=== PATIENT | female | born 1940 | race Caucasian/White ===

== ENCOUNTER 2016-09-28 17:53 | Emergency (ER) | payer MEDICARE, BC ==
[2016-09-28] MEDS ORDERED: guaiFENesin 600 MG TABLET PO STA (18:07)
== END 2016-09-28 18:26 | disposition home or self-care (01) ==
DX: H73.891 Other specified disorders of tympanic membrane, right ear (principal); Q17.9 Congenital malformation of ear, unspecified; H91.90 Unspecified hearing loss, unspecified ear; I25.10 Atherosclerotic heart disease of native coronary artery without angina pectoris; I10 Essential (primary) hypertension; E78.00 Pure hypercholesterolemia, unspecified; R01.1 Cardiac murmur, unspecified; F41.9 Anxiety disorder, unspecified; F43.10 Post-traumatic stress disorder, unspecified; Z79.899 Other long term (current) drug therapy; Z72.89 Other problems related to lifestyle
CPT/HCPCS: 99282; 99283; A9270

== ENCOUNTER 2016-10-07 15:04 | Outpatient (CLI) | payer MEDICARE, BC | END 2016-10-07 15:05 | disposition home or self-care (01) | DX: S32.591A Other specified fracture of right pubis, initial encounter for closed fracture (principal); S70.01XA Contusion of right hip, initial encounter; M25.551 Pain in right hip ==

== ENCOUNTER 2016-10-21 | Emergency (ER) | payer MEDICARE, BC ==
--- NOTE | 2016-10-21 20:10 | ED Physician Documentation ---
PD HPI ALTERED MENTAL STATUS - Stated complaint Stated Complaint: CONFUSION/DIZZY - Chief complaint Chief Complaint: Neuro - History obtained from History obtained from: Patient, Family () - History of Present Illness Timing - onset: Other (76-year-old woman with recent pelvic fracture. Was on Tylenol No. 3 until yesterday but was insufficient. Fill both hydrocodone and tramadol today and took 2 hydrocodone and one tramadol at 330 p.m. and shortly thereafter felt dizzy and confused which still is present to some extent. No alcohol use today.) Review of Systems Constitutional: denies: Fever, Chills Cardiac: denies: Chest pain / pressure, Palpitations Respiratory: denies: Dyspnea, Cough GI: denies: Abdominal Pain, Nausea PD PAST MEDICAL HISTORY - Past Medical History Cardiovascular: Hypertension, High cholesterol, Coronary artery disease, Murmur Respiratory: None Neuro: None Endocrine/Autoimmune: None GI: None PERSONAL INSURANCE ADVISOR: None : None HEENT: None Psych: Anxiety, Post traumatic stress disorder Musculoskeletal: None Derm: None - Past Surgical History Past Surgical History: Yes General: Appendectomy /PERSONAL INSURANCE ADVISOR: Hysterectomy - Present Medications Home Medications: Ambulatory Orders Medication Instructions Recorded Confirmed Levothyroxine [Synthroid] 75 mcg DAILY 02/20/13 09/28/16 Nortriptyline [Pamelor] 10 mg PO DAILY 02/20/13 09/28/16 Trazodone HCl 50 mg PO QPM 02/20/13 09/28/16 Amlodipine Besylate 2.5 mg DAILY 12/28/13 09/28/16 Metoprolol Succinate [Toprol Xl] 50 mg BID 12/28/13 09/28/16 Aspirin [Aspir-Low] 81 mg DAILY 09/28/16 09/28/16 Chlorthalidone 12.5 mg DAILY 09/28/16 09/28/16 Clonazepam 2 tab DAILY 09/28/16 09/28/16 Ibandronate Sodium 150 mg DAILY 09/28/16 09/28/16 Loperamide [Imodium] 1 tab DAILY 09/28/16 09/28/16 Multivitamin [Multivitamins] 1 tab DAILY 09/28/16 09/28/16 Omeprazole [PriLOSEC] 20 mg DAILY 09/28/16 09/28/16 Potassium Chloride 10 meq TID 09/28/16 09/28/16 Pravastatin [Pravachol] 20 mg DAILY 09/28/16 09/28/16 - Allergies Allergies/Adverse Reactions: Allergies Allergy/AdvReac Type Severity Reaction Status Date / Time No Known Drug Allergies Allergy Verified 02/20/13 16:09 - Social History Does the pt smoke?: No Smoking Status: Never smoker Does the pt drink ETOH?: Yes Does the pt have substance abuse?: No - Immunizations Immunizations are current?: No Immunizations: TDAP >10years/unknown - POLST Patient has POLST: No PD ED PE NORMAL - Vitals Vital signs reviewed: Yes - General General: Alert and oriented X 3, No acute distress - HEENT HEENT: EOMI, Other (small pupils) - Neck Neck: Supple, no meningeal sign, No bony TTP - Cardiac Cardiac: RRR, No murmur - Respiratory Respiratory: No respiratory distress, Clear bilaterally - Abdomen Abdomen: Non tender - Neuro Neuro: Alert and oriented X 3, hydrant setter 2-12 intact, No motor deficit, No sensory deficit, Normal speech, Other (NIHSS zero) - Psych Psych: Normal mood, Normal affect Results - Vitals Vitals: Vital Signs - 24 hr 10/21/16 10/21/16 19:05 20:01 Temperature 36.2 C L Heart Rate 66 63 Respiratory 14 12 Rate Blood Pressure 185/76 H 167/100 H O2 Saturation 92 Oxygen O2 Source Room air - EKG (time done) 1921 Rate: Rate (enter#) (62) Rhythm: NSR [place]: Normal Intervals: Normal MI Ischemia: Q waves (anterior). No: ST elevation c/w ischemia Computer interpretation: Agree with computer PD MEDICAL DECISION MAKING - ED course ED course: She presents with a complaint of confusion and dizziness after taking 2 hydrocodone and one tramadol about 5 hours ago. There is no evidence of significant drug overdose and conservative care was advised. It was advised that she not take these medications together or in a dosage higher than as prescribed. Departure - Departure Disposition: 01 Home, Self Care Clinical Impression: Medication side effect Condition: Good Record reviewed to determine appropriate education?: Yes Comments: Do not take the hydrocodone and tramadol together and do not take them more than are prescribed. Your blood pressure was elevated today on check in to the emergency department. This does not mean that you have hypertension, it is a common phenomenon to check into the emergency department and have elevated blood pressure. I recommend that you see your primary care physician within the week to have it rechecked when you're feeling better.
== END 2016-10-21 20:21 | disposition home or self-care (01) ==
CPT/HCPCS: 93005; 93010; 99283

== ENCOUNTER 2016-11-17 11:35 | Outpatient (CLI) | payer MEDICARE, BC | END 2016-11-17 11:36 | disposition home or self-care (01) | DX: S32.810D Multiple fractures of pelvis with stable disruption of pelvic ring, subsequent encounter for fracture with routine healing (principal) ==

== ENCOUNTER 2017-05-26 10:15 | Emergency (ER) | payer MEDICARE, BC ==
--- NOTE | 2017-05-26 10:55 | XRAY Preliminary Report ---
Exam: XR Chest 2 View PA/LAT IMPRESSION: 1. Pattern of probable right bronchiectasis again demonstrated. However, there is now focal right mid dle lobe consolidation and adjacent nodularity which is suspicious for pneumonia. Follow-up is recomm ended to confirm clearance. If findings do not resolve, or if further characterization were indicated at this time, CT imaging with contrasted would be recommended. 2. Stable mild pulmonary hyperinflation. [facility] SITE ID: [id number]
--- NOTE | 2017-05-26 10:58 | XRAY Report ---
EXAM: CHEST RADIOGRAPHY EXAM DATE: 05/26/2017 10:44 AM. CLINICAL HISTORY: Pain. COMPARISON: None. TECHNIQUE: 2 views. FINDINGS: Lungs/Pleura: Pattern compatible with bronchiectasis within the right lower lung again demonstrated. However, there is now associated ill-defined focal pulmonary consolidation within the anterior right middle lobe and some adjacent nodularity. No pleural effusion. No pneumothorax. Mild hyperinflation r edemonstrated. Dense/calcific nodules projecting over both lower lung cantor again demonstrated, like ly osteochondral calcifications. Mediastinum: Heart and mediastinal contours are unremarkable. Other: Changes of proximal right humeral surgical internal fixation are stable. Old, healed right rib fractures redemonstrated. IMPRESSION: 1. Pattern of probable right bronchiectasis again demonstrated. However, there is now focal right mid dle lobe consolidation and adjacent nodularity which is suspicious for pneumonia. Follow-up is recomm ended to confirm clearance. If findings do not resolve, or if further characterization were indicated at this time, CT imaging with contrasted would be recommended. 2. Stable mild pulmonary hyperinflation. [facility] Referring Provider Line: [phone] SITE ID: [id number]
--- NOTE | 2017-05-26 11:43 | ED Physician Documentation ---
PD HPI URI - Stated complaint Stated Complaint: UPPER RT SIDE PX - Chief complaint Chief Complaint: Abd Pain - History obtained from History obtained from: Patient - History of Present Illness Timing - onset: How many days ago (3) Timing duration: Days (3) Timing details: Gradual onset, Still present Associated symptoms: Nasal congestion, Rhinorrhea, Dry cough, Chest pain, Dyspnea Contributing factors: Sick contact (neighbor got home from a cruize and of pneumonia) Improves by: Rest Worsened by: Activity, Breathing Similar symptoms before: Diagnosis (pneumoina with aspiragellosis) Recently seen: Not recently seen - Additional information Additional information: 77-year-old female is developed a cough about 3 days ago and she does have a neighbor who of pneumonia last week. She has pain in her right side of her chest but does not have shortness of breath or fever. She has had aspergillosis previously Review of Systems Constitutional: reports: Chills. denies: Fever Eyes: denies: Decreased vision Ears: denies: Ear pain Nose: reports: Rhinorrhea / runny nose, Congestion Throat: denies: Sore throat Cardiac: reports: Chest pain / pressure. denies: Palpitations, Pedal edema Respiratory: reports: Dyspnea, Cough GI: denies: Abdominal Pain, Nausea, Vomiting, Constipation, Diarrhea : denies: Dysuria, Frequency Skin: denies: Rash Musculoskeletal: denies: Neck pain, Back pain, Extremity pain Neurologic: denies: Generalized weakness, Focal weakness, Numbness PD PAST MEDICAL HISTORY - Past Medical History Cardiovascular: Hypertension, High cholesterol, Coronary artery disease, Murmur Respiratory: None Neuro: None Endocrine/Autoimmune: None GI: None SILVER CHASER: None : None HEENT: None Psych: Anxiety, Post traumatic stress disorder Musculoskeletal: None Derm: None - Past Surgical History Past Surgical History: Yes General: Appendectomy /SILVER CHASER: Hysterectomy - Present Medications Home Medications: Ambulatory Orders Medication Instructions Recorded Confirmed Levothyroxine [Synthroid] 75 mcg DAILY 02/20/13 05/26/17 Trazodone HCl 50 mg PO QPM 02/20/13 05/26/17 Metoprolol Succinate [Toprol Xl] 50 mg BID 12/28/13 05/26/17 Aspirin [Aspir-Low] 81 mg DAILY 09/28/16 05/26/17 Chlorthalidone 12.5 mg DAILY 09/28/16 05/26/17 Clonazepam 2 tab DAILY 09/28/16 05/26/17 Ibandronate Sodium 150 mg DAILY 09/28/16 05/26/17 Loperamide [Imodium] 1 tab DAILY 09/28/16 05/26/17 Multivitamin [Multivitamins] 1 tab DAILY 09/28/16 05/26/17 Omeprazole [PriLOSEC] 20 mg DAILY 09/28/16 05/26/17 Potassium Chloride 10 meq TID 09/28/16 05/26/17 Pravastatin [Pravachol] 20 mg DAILY 09/28/16 05/26/17 Levofloxacin [Levaquin] 500 mg PO DAILY #10 tablet 05/26/17 Lisinopril 20 mg PO DAILY 05/26/17 05/26/17 - Allergies Allergies/Adverse Reactions: Allergies Allergy/AdvReac Type Severity Reaction Status Date / Time No Known Drug Allergies Allergy Verified 02/20/13 16:09 - Social History Does the pt smoke?: No Smoking Status: Never smoker Does the pt drink ETOH?: Yes Does the pt have substance abuse?: No - Immunizations Immunizations are current?: No Immunizations: TDAP >10years/unknown - POLST Patient has POLST: No PD ED PE NORMAL - Vitals Vital signs reviewed: Yes (Normal) - General General: Alert and oriented X 3, No acute distress, Well developed/nourished - HEENT HEENT: Atraumatic, PERRL, EOMI, Ears normal, Moist mucous membranes - Neck Neck: Supple, no meningeal sign - Cardiac Cardiac: RRR, No murmur - Respiratory Respiratory: No respiratory distress, Other (Diminished breath sounds bilaterally) - Abdomen Abdomen: Soft, Non tender - Back Back: No CVA TTP, No spinal TTP - Derm Derm: Normal color, Warm and dry, No rash - Extremities Extremities: No deformity, No edema - Neuro Neuro: No motor deficit, No sensory deficit, Normal speech - Psych Psych: Normal mood, Normal affect Results - Vitals Vitals: Vital Signs - 24 hr 05/26/17 05/26/17 10:18 12:32 Temperature 37.0 C 37.4 C Heart Rate 68 63 Respiratory 18 20 Rate Blood Pressure 110/68 132/67 H O2 Saturation 99 100 Oxygen O2 Source Room air - Rads (name of study) 2 veiw chest Radiology: Prelim report reviewed (IMPRESSION: 1. Pattern of probable right bronchiectasis is again demonstrated. However, there is now focal right middle lobe consolidation and adjacent nodularity which is suspicious for pneumonia. Follow-up is recommended to confirm clearance. If findings do not resolve, or further characterization were indicated at this time, CT imaging with contrast would be recommended. 2. Stable mild pulmonary hyperinflation.), EMP read indepedently, See rad report PD MEDICAL DECISION MAKING - ED course Complexity details: reviewed results, re-evaluated patient, considered differential, d/w patient, d/w family ED course: 69-year-old female with a cough and congestion has developed pain in her right chest beginning last night and on her chest x-ray today she does appear to have an infiltrate on the right side. She does have a history of prior aspergillosis and she has scarring on her x-ray.She is given an injection of Rocephin for pneumonia. She does not have symptoms of reactive airway disease but she does have reduced air movement. Departure - Departure Disposition: 01 Home, Self Care Clinical Impression: Pneumonia Qualifiers: Pneumonia type: due to unspecified organism Laterality: right Lung location: middle lobe of lung Qualified Code(s): J18.1 - Lobar pneumonia, unspecified organism Condition: Stable Instructions: ED Pneumonia Adult Follow-Up: Leonid Ashraf MD [Primary Care Provider] - Prescriptions: Levofloxacin [Levaquin] 500 mg PO DAILY #10 tablet Discharge Date/Time: 05/26/17 12:40
[2017-05-26] MEDS ORDERED: cefTRIAXone 1 GM VIAL IM STA (11:54)
[2017-05-26] MEDS ORDERED: cefTRIAXone 1 GM VIAL ONE (12:00)
[2017-05-26] MEDS ORDERED: LIDOCAINE 1% 2 ML VIAL ONE (12:01)
[2017-05-26 12:33] VITALS: BP 132/67
== END 2017-05-26 12:40 | disposition home or self-care (01) ==
LOC: ED 10:15
DX: J18.9 Pneumonia, unspecified organism (principal); I10 Essential (primary) hypertension; I25.10 Atherosclerotic heart disease of native coronary artery without angina pectoris; E78.00 Pure hypercholesterolemia, unspecified; Z79.82 Long term (current) use of aspirin
CPT/HCPCS: 71020; 96372; 99281; 99283; 99284

== ENCOUNTER 2017-05-26 20:32 | Emergency (ER) | payer MEDICARE, BC ==
[2017-05-26 20:46] VITALS: BP 139/67
== END 2017-05-26 22:00 | disposition left against medical advice (07) ==
LOC: ED 20:32
DX: Z53.21 Procedure and treatment not carried out due to patient leaving prior to being seen by health care provider (principal)
CPT/HCPCS: 99281

== ENCOUNTER 2018-04-08 21:06 | Emergency (ER) | payer MEDICARE, BC ==
[2018-04-08] MEDS ORDERED: oxyCODONE 5 MG TABLET PO STA (21:27)
[2018-04-08] MEDS ORDERED: CYCLOBENZAPRINE 10 MG TABLET PO STA (21:27)
--- NOTE | 2018-04-08 21:31 | ED Physician Documentation ---
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 C/O low back pain. Patient landed on her buttocks. Denies head injury, denies LOC, denies numbness, weakness. Took two tablets hydrocodone with some relief Review of Systems GI: reports: Reviewed and negative : denies: Incontinent Musculoskeletal: reports: Back pain, Pain with weight bearing. denies: Neck pain, Extremity pain, Joint pain, Extremity swelling, Joint swelling Neurologic: denies: Generalized weakness, Focal weakness, Numbness, Confused, Altered mental status, Headache, Head injury, LOC PD PAST MEDICAL HISTORY - Past Medical History Cardiovascular: Hypertension, High cholesterol, Coronary artery disease, Murmur Respiratory: None Endocrine/Autoimmune: None GI: None SECURITY CHIEF MUSEUM: None : None HEENT: None Psych: Anxiety, Post traumatic stress disorder Musculoskeletal: None Derm: None - Past Surgical History Past Surgical History: Yes General: Appendectomy /SECURITY CHIEF MUSEUM: Hysterectomy - Present Medications Home Medications: Ambulatory Orders Medication Instructions Recorded Confirmed Levothyroxine [Synthroid] 75 mcg DAILY 02/20/13 05/26/17 Trazodone HCl 50 mg PO QPM 02/20/13 05/26/17 Metoprolol Succinate [Toprol Xl] 50 mg BID 12/28/13 05/26/17 Aspirin [Aspir-Low] 81 mg DAILY 09/28/16 05/26/17 Chlorthalidone 12.5 mg DAILY 09/28/16 05/26/17 Ibandronate Sodium 150 mg DAILY 09/28/16 05/26/17 Loperamide [Imodium] 1 tab DAILY 09/28/16 05/26/17 Multivitamin [Multivitamins] 1 tab DAILY 09/28/16 05/26/17 Omeprazole [PriLOSEC] 20 mg DAILY 09/28/16 05/26/17 Potassium Chloride 10 meq TID 09/28/16 05/26/17 Pravastatin [Pravachol] 20 mg DAILY 09/28/16 05/26/17 clonazePAM [Clonazepam] 2 tab DAILY 09/28/16 05/26/17 Levofloxacin [Levaquin] 500 mg PO DAILY #10 tablet 05/26/17 Lisinopril 20 mg PO DAILY 05/26/17 05/26/17 Cyclobenzaprine [Flexeril] 10 mg PO TID PRN #20 tablet 04/08/18 oxyCODONE [Roxicodone] 5 - 10 mg PO Q6H PRN #14 tablet 04/08/18 - Allergies Allergies/Adverse Reactions: Allergies Allergy/AdvReac Type Severity Reaction Status Date / Time tide detergent Allergy Hives Uncoded 05/26/17 20:46 - Social History Does the pt smoke?: No Smoking Status: Never smoker Does the pt drink ETOH?: Yes Does the pt have substance abuse?: No - Immunizations Immunizations are current?: No Immunizations: TDAP >10years/unknown - POLST Patient has POLST: No PD ED PE NORMAL - Vitals Vital signs reviewed: Yes - General General: Alert and oriented X 3, No acute distress (NAD at rest, appears to have painful discomfort with movement involving mid/lower back), Well developed/ nourished - Neck Neck: No bony TTP - Cardiac Cardiac: RRR - Abdomen Abdomen: Soft, Non tender - Extremities Extremities: No deformity, No tenderness to palpate, Normal ROM s pain, No edema - Neuro Neuro: Alert and oriented X 3, fish cleaner machine tender 2-12 intact, No motor deficit, No sensory deficit, Normal speech Eye Opening: Spontaneous Motor: Obeys Commands Verbal: Oriented GCS Score: 15 PD ED PE EXPANDED - Cardiac Cardiac: Regular Rate, Regular Rhythm (occasional extra beats), Murmur Present ( 2/6 RUDDY greatest at right 2nd ICS) - Back Back: Vertebral tenderness (mild tenderness midline lower thoracic/upper lumbar region) Results - Vitals Vitals: Vital Signs - 24 hr 04/08/18 04/09/18 21:13 00:08 Temperature 36.6 C Heart Rate 60 60 Respiratory 20 20 Rate Blood Pressure 202/72 H 160/70 H O2 Saturation 100 100 Oxygen O2 Source Room air - Rads (name of study) lumbar xrays Radiology: Prelim report reviewed, See rad report PD MEDICAL DECISION MAKING - ED course Complexity details: reviewed results, re-evaluated patient, considered differential, d/w patient, d/w family - Sepsis Event Vital Signs: Vital Signs - 24 hr 04/08/18 04/09/18 21:13 00:08 Temperature 36.6 C Heart Rate 60 60 Respiratory 20 20 Rate Blood Pressure 202/72 H 160/70 H O2 Saturation 100 100 Oxygen O2 Source Room air Departure - Departure Disposition: 01 Home, Self Care Clinical Impression: Fall, Back pain due to injury Condition: Good Instructions: ED Low Back Pain Injury, ED Mechanical Fall Follow-Up: Leonid Ashraf MD [Primary Care Provider] - Within 1 week Prescriptions: Cyclobenzaprine [Flexeril] 10 mg PO TID PRN #20 tablet PRN Reason: Spasms oxyCODONE [Roxicodone] 5 - 10 mg PO Q6H PRN #14 tablet PRN Reason: Pain Discharge Date/Time: 04/08/18 23:45
--- NOTE | 2018-04-08 21:58 | XRAY Report ---
Procedure Date: 04/08/2018 Accession Number: [id number] / [id number] Procedure: XR - Lumbar Spine 2 View CPT Code: FULL RESULT: EXAM: LUMBOSACRAL SPINE RADIOGRAPHY EXAM DATE: 04/08/2018 09:46 PM. CLINICAL HISTORY: Fall, low/mid back pain. COMPARISONS: XR LUMBAR SPINE 2 OR 3 VIEWS 05/14/2009. TECHNIQUE: 3 views. FINDINGS: Alignment: Normal. No spondylolisthesis or scoliosis. Bones: Five [id number] lumbar vertebral bodies are present. There is slight compression of the L1 superior endplate which is new compared to the previous exam. No other evidence of fracture. Disks: Moderate L5-S1 degenerative disk space narrowing with associated endplate sclerosis and marginal spurring. There is also mild narrowing of the L4-L5 interspace. Facets: L4-L5 and L5-S1 facet joint arthropathy. Sacroiliac Joints: Unremarkable. Soft Tissues: Normal. The visualized bowel gas pattern is normal. IMPRESSION: 1. Mild compression fracture deformity of the L1 superior endplate, age indeterminate. 2. L4-L5 and L5-S1 disk and facet joint related degenerative changes. [facility]
[2018-04-08] MEDS ORDERED: oxyCODONE/ACET 5/325 Prepack 4 PO STA (23:01)
[2018-04-08] MEDS ORDERED: CYCLOBENZAPRINE 10 MG Prepack 2 PO PRN (23:01)
[2018-04-09 00:09] VITALS: BP 160/70
== END 2018-04-08 23:45 | disposition home or self-care (01) ==
LOC: ED 21:06
DX: M54.5 Low back pain (principal); M54.6 Pain in thoracic spine; I10 Essential (primary) hypertension; Z79.82 Long term (current) use of aspirin; W18.30XA Fall on same level, unspecified, initial encounter; Y93.89 Activity, other specified; Y92.008 Other place in unspecified non-institutional (private) residence as the place of occurrence of the external cause
CPT/HCPCS: 72100; 99283; A9270

== ENCOUNTER 2018-04-13 16:02 | Outpatient (CLI) | payer MEDICARE, BC ==
[2018-04-13 16:19] LABS: BASOPHILS % (AUTO) 0.6 %; EOSINOPHILS % (AUTO) 0.3 %; HGB - HEMOGLOBIN 12.8 g/dL (12.0-16.0); LYMPHOCYTES # (AUTO) 0.7 10^3/uL (1.5-3.5); LYMPHOCYTES % (AUTO) 9.4 %; MEAN CORPUSCULAR HEMOGLOBIN 32.3 pg (27.0-31.0); MEAN CORPUSCULAR VOLUME 92.3 fL (81.0-99.0); MEAN PLATELET VOLUME 6.3 fL (7.9-10.8); MONOCYTES # (AUTO) 0.6 10^3/uL (0.0-1.0); MONOCYTES % (AUTO) 7.5 %; NEUTROPHILS # (AUTO) 6.5 10^3/uL (1.5-6.6); NEUTROPHILS % (AUTO) 82.2 %; PLT - PLATELET COUNT 303 10^3/uL (130-450); RED BLOOD COUNT 3.97 10^6/uL (4.20-5.40); RED CELL DISTRIBUTION WIDTH 12.2 % (12.0-15.0); WHITE BLOOD COUNT 7.9 x10^3/uL (4.8-10.8)
[2018-04-13 16:36] LABS: ALBUMIN 3.6 g/dL (3.2-5.5); ALBUMIN/GLOBULIN RATIO 1.1 (1.0-2.2); BILIRUBIN,TOTAL 1.5 mg/dL (0.2-1.0); CREATININE 0.7 mg/dL (0.4-1.0)
== END 2018-04-13 16:03 | disposition home or self-care (01) ==
LOC: LAB 16:02
PROVIDERS: ATTEND Specialist
DX: M48.50XA Collapsed vertebra, not elsewhere classified, site unspecified, initial encounter for fracture (principal)
CPT/HCPCS: 36415; 80053; 85025; 85651

== ENCOUNTER 2018-04-20 15:42 | Outpatient (CLI) | payer MEDICARE, BC ==
--- NOTE | 2018-04-20 17:07 | CT Report ---
Reason: LOW BACK PAIN Procedure Date: 04/20/2018 Accession Number: [id number] / [id number] Procedure: CT - Lumbar Spine W/O CPT Code: FULL RESULT: EXAM: CT LUMBAR SPINE WITHOUT CONTRAST EXAM DATE: 04/20/2018 04:20 PM. CLINICAL HISTORY: Back pain and discomfort. COMPARISONS: LUMBAR SPINE 2 VIEW 04/08/2018. TECHNIQUE: Thin-section axial images were acquired of the lumbar spine from T12 to S1 without contrast. Post-processing: Coronal and sagittal reformats. Other: None. In accordance with CT protocol optimization, one or more of the following dose reduction techniques were utilized for this exam: automated exposure control, adjustment of mA and/or KV based on patient size, or use of iterative reconstructive technique. FINDINGS: Alignment: 6 degrees of dextroscoliosis between T11-T12 and L3-L4. Mild kyphotic change at the thoracolumbar junction. Bones: Five [id number] lumbar vertebral bodies are present. Since the comparison study, there has been further progression of L1 compression fracture, now with loss of about 75% of vertebral body in the central aspect. There is also new retropulsion of about 5 mm. Series 7 image 53. Endplate sclerosis at L5-S1. Disk Levels/Facets: T12-L1: Retropulsion at this level. No significant disk disease. Moderate central stenosis. No foraminal narrowing. L1-L2: Normal appearing disk. No central or foraminal stenosis. L2-L3: Normal appearing disk. No central or foraminal stenosis. L3-L4: Broad-based disk bulge is seen. Mild central stenosis. Prominent facets. No central or foraminal stenosis. L4-L5: Disk osteophyte complex at this level. Hypertrophic facets and ligamentum flavum. Left-sided disk bulge is seen. Moderate left foraminal stenosis. No central stenosis. L5-S1: Disk osteophyte complex. Moderate central stenosis. Moderate to severe bilateral foraminal stenosis. Musculature: Moderate fatty atrophy of the multifidus muscle is noted. Other: The visualized retroperitoneum is unremarkable. IMPRESSION: 1. 6 degrees of dextroscoliosis between T11-T12 and L3-L4. Mild kyphotic change at the thoracolumbar junction. 2. Further progression of L1 compression fracture since the comparison exam, now with involvement of about 75% of vertebral body in the central aspect. New retropulsion of about 5 mm. 3. L3-L4 shows a broad-based disk bulge, mild central stenosis. No central or foraminal stenosis. 4. L4-L5 shows disk osteophyte complex. Hypertrophic facets and ligamentum flavum. Left-sided disk bulge. Moderate left foraminal stenosis. No central stenosis. 5. L5-S1 shows disk osteophyte complex. Moderate central stenosis and moderate to severe bilateral foraminal stenosis. [facility]
== END 2018-04-20 15:43 | disposition home or self-care (01) ==
LOC: DI 15:42
PROVIDERS: ATTEND Specialist
DX: M51.36 Other intervertebral disc degeneration, lumbar region (principal); M47.896 Other spondylosis, lumbar region; M48.061 Spinal stenosis, lumbar region without neurogenic claudication; M48.07 Spinal stenosis, lumbosacral region; M48.56XD Collapsed vertebra, not elsewhere classified, lumbar region, subsequent encounter for fracture with routine healing; M41.84 Other forms of scoliosis, thoracic region; M41.86 Other forms of scoliosis, lumbar region
CPT/HCPCS: 72131

== ENCOUNTER 2018-06-24 10:54 | Outpatient (CLI) | payer MEDICARE, BC ==
[2018-06-24 11:15] LABS: BASOPHILS % (AUTO) 0.8 %; EOSINOPHILS # (AUTO) 0.3 10^3/uL (0.0-0.7); EOSINOPHILS % (AUTO) 5.7 %; HGB - HEMOGLOBIN 12.6 g/dL (12.0-16.0); LYMPHOCYTES # (AUTO) 1.8 10^3/uL (1.5-3.5); LYMPHOCYTES % (AUTO) 32.9 %; MEAN CORPUSCULAR HEMOGLOBIN 32.4 pg (27.0-31.0); MEAN CORPUSCULAR HGB CONC 34.3 g/dL (32.0-36.0); MEAN CORPUSCULAR VOLUME 94.5 fL (81.0-99.0); MEAN PLATELET VOLUME 6.5 fL (7.9-10.8); MONOCYTES # (AUTO) 0.5 10^3/uL (0.0-1.0); MONOCYTES % (AUTO) 9.4 %; NEUTROPHILS # (AUTO) 2.8 10^3/uL (1.5-6.6); NEUTROPHILS % (AUTO) 51.2 %; PLT - PLATELET COUNT 318 10^3/uL (130-450); RED BLOOD COUNT 3.89 10^6/uL (4.20-5.40); RED CELL DISTRIBUTION WIDTH 13.1 % (12.0-15.0); WHITE BLOOD COUNT 5.5 x10^3/uL (4.8-10.8)
[2018-06-24 11:36] LABS: ALBUMIN 3.9 g/dL (3.2-5.5); ALBUMIN/GLOBULIN RATIO 1.4 (1.0-2.2); ALKALINE PHOSPHATASE 58 IU/L (42-121); ALT ALANINE AMINOTRANSFERASE 14 IU/L (10-60); AST ASPARTATE AMINOTRANSFERASE 20 IU/L (10-42); BILIRUBIN,TOTAL 0.7 mg/dL (0.2-1.0); BUN - BLOOD UREA NITROGEN 10 mg/dL (6-20); CALCIUM 9.3 mg/dL (8.5-10.3); CARBON DIOXIDE - CO2 31 mmol/L (21-32); CHLORIDE 95 mmol/L (101-111); CHOL/HDL RATIO 2.5 (<4.4); CHOLESTEROL 209 mg/dL; CREATININE 0.5 mg/dL (0.4-1.0); GFR - MDRD 119 (>89); GLUCOSE 87 mg/dL (70-100); HDL CHOLESTEROL 83 mg/dL; LDL CHOLESTEROL,CALCULATED 110 mg/dL; LDL/HDL RATIO 1.3 (<4.4); SODIUM 133 mmol/L (135-145); TOTAL PROTEIN 6.7 g/dL (6.7-8.2); VLDL CHOLESTEROL 16 mg/dL
[2018-06-24 11:55] LABS: THYROID STIMULATING HORMONE 4.01 uIU/mL (0.34-5.60)
[2018-06-24 11:57] LABS: FREE T4 (FREE THYROXINE) 1.24 ng/dL (0.58-1.64)
== END 2018-06-24 10:55 | disposition home or self-care (01) ==
LOC: LAB 10:54
PROVIDERS: ATTEND Internal Medicine
DX: E78.5 Hyperlipidemia, unspecified (principal); E03.8 Other specified hypothyroidism
CPT/HCPCS: 36415; 80053; 80061; 83721; 84439; 84443; 85025

== ENCOUNTER 2019-01-19 14:30 | Outpatient (CLI) | payer MEDICARE, BC ==
[2019-01-19 15:32] LABS: BASOPHILS % (AUTO) 0.4 %; EOSINOPHILS # (AUTO) 0.4 10^3/uL (0.0-0.7); EOSINOPHILS % (AUTO) 4.2 %; HGB - HEMOGLOBIN 12.1 g/dL (12.0-16.0); LYMPHOCYTES # (AUTO) 1.3 10^3/uL (1.5-3.5); LYMPHOCYTES % (AUTO) 14.7 %; MEAN CORPUSCULAR HEMOGLOBIN 30.3 pg (27.0-31.0); MEAN CORPUSCULAR HGB CONC 32.9 g/dL (32.0-36.0); MEAN CORPUSCULAR VOLUME 92.1 fL (81.0-99.0); MEAN PLATELET VOLUME 6.7 fL (7.9-10.8); MONOCYTES # (AUTO) 0.7 10^3/uL (0.0-1.0); MONOCYTES % (AUTO) 8.2 %; NEUTROPHILS # (AUTO) 6.5 10^3/uL (1.5-6.6); NEUTROPHILS % (AUTO) 72.5 %; PLT - PLATELET COUNT 336 10^3/uL (130-450); RED CELL DISTRIBUTION WIDTH 12.5 % (12.0-15.0)
[2019-01-19 15:51] LABS: ALBUMIN 3.8 g/dL (3.2-5.5); ALBUMIN/GLOBULIN RATIO 1.1 (1.0-2.2); BILIRUBIN,TOTAL 0.6 mg/dL (0.2-1.0); CALCIUM 9.4 mg/dL (8.5-10.3); CREATININE 0.6 mg/dL (0.4-1.0); TOTAL PROTEIN 7.2 g/dL (6.7-8.2)
== END 2019-01-19 14:31 | disposition home or self-care (01) ==
LOC: LAB 14:30
DX: J47.9 Bronchiectasis, uncomplicated (principal); B44.9 Aspergillosis, unspecified
CPT/HCPCS: 36415; 80053; 85025

== ENCOUNTER 2019-02-07 11:07 | Outpatient (CLI) | payer MEDICARE, BC ==
[2019-02-07 11:36] LABS: BASOPHILS % (AUTO) 0.8 %; EOSINOPHILS # (AUTO) 0.1 10^3/uL (0.0-0.7); EOSINOPHILS % (AUTO) 2.8 %; HGB - HEMOGLOBIN 12.7 g/dL (12.0-16.0); LYMPHOCYTES % (AUTO) 20.7 %; MEAN CORPUSCULAR HEMOGLOBIN 30.3 pg (27.0-31.0); MEAN CORPUSCULAR HGB CONC 33.2 g/dL (32.0-36.0); MEAN CORPUSCULAR VOLUME 91.1 fL (81.0-99.0); MEAN PLATELET VOLUME 6.4 fL (7.9-10.8); MONOCYTES # (AUTO) 0.5 10^3/uL (0.0-1.0); NEUTROPHILS % (AUTO) 64.7 %; PLT - PLATELET COUNT 383 10^3/uL (130-450); RED BLOOD COUNT 4.18 10^6/uL (4.20-5.40); WHITE BLOOD COUNT 4.6 x10^3/uL (4.8-10.8)
[2019-02-07 11:51] LABS: ALBUMIN 3.7 g/dL (3.2-5.5); BILIRUBIN,TOTAL 0.6 mg/dL (0.2-1.0); CALCIUM 8.8 mg/dL (8.5-10.3); CREATININE 0.5 mg/dL (0.4-1.0); TOTAL PROTEIN 7.3 g/dL (6.7-8.2)
== END 2019-02-07 11:08 | disposition home or self-care (01) ==
LOC: LAB 11:07
PROVIDERS: ATTEND General Practice
DX: J47.9 Bronchiectasis, uncomplicated (principal); B44.9 Aspergillosis, unspecified
CPT/HCPCS: 36415; 80053; 85025

== ENCOUNTER 2019-02-15 15:32 | Outpatient (CLI) | payer MEDICARE, BC ==
[2019-02-15 15:57] LABS: BASOPHILS % (AUTO) 0.6 %; EOSINOPHILS # (AUTO) 0.3 10^3/uL (0.0-0.7); EOSINOPHILS % (AUTO) 4.8 %; HGB - HEMOGLOBIN 12.4 g/dL (12.0-16.0); LYMPHOCYTES # (AUTO) 1.4 10^3/uL (1.5-3.5); LYMPHOCYTES % (AUTO) 22.5 %; MEAN CORPUSCULAR HEMOGLOBIN 29.9 pg (27.0-31.0); MEAN CORPUSCULAR HGB CONC 32.2 g/dL (32.0-36.0); MEAN CORPUSCULAR VOLUME 92.8 fL (81.0-99.0); MEAN PLATELET VOLUME 8.5 fL (7.9-10.8); MONOCYTES # (AUTO) 0.5 10^3/uL (0.0-1.0); MONOCYTES % (AUTO) 7.4 %; NEUTROPHILS # (AUTO) 4.1 10^3/uL (1.5-6.6); NEUTROPHILS % (AUTO) 64.4 %; PLT - PLATELET COUNT 275 10^3/uL (130-450); RED BLOOD COUNT 4.15 10^6/uL (4.20-5.40); RED CELL DISTRIBUTION WIDTH 11.6 % (12.0-15.0); WHITE BLOOD COUNT 6.3 x10^3/uL (4.8-10.8)
[2019-02-15 16:10] LABS: ALBUMIN 3.7 g/dL (3.2-5.5); BILIRUBIN,TOTAL 0.5 mg/dL (0.2-1.0); CALCIUM 9.4 mg/dL (8.5-10.3); CREATININE 0.6 mg/dL (0.4-1.0); TOTAL PROTEIN 7.3 g/dL (6.7-8.2)
== END 2019-02-15 15:33 | disposition home or self-care (01) ==
LOC: LAB 15:32
PROVIDERS: ATTEND General Practice
DX: J47.9 Bronchiectasis, uncomplicated (principal); B44.9 Aspergillosis, unspecified
CPT/HCPCS: 36415; 80053; 85025

== ENCOUNTER 2019-06-27 15:01 | Outpatient (CLI) | payer MEDICARE, BC ==
[2019-06-27 15:55] LABS: ALBUMIN 3.9 g/dL (3.2-5.5); ALBUMIN/GLOBULIN RATIO 1.1 (1.0-2.2); BILIRUBIN,TOTAL 0.3 mg/dL (0.2-1.0); CALCIUM 9.1 mg/dL (8.5-10.3); CREATININE 0.7 mg/dL (0.4-1.0); TOTAL PROTEIN 7.3 g/dL (6.7-8.2)
[2019-06-27 16:11] LABS: THYROID STIMULATING HORMONE 0.62 uIU/mL (0.34-5.60)
[2019-06-27 16:13] LABS: FREE T4 (FREE THYROXINE) 0.96 ng/dL (0.58-1.64)
== END 2019-06-27 15:02 | disposition home or self-care (01) ==
LOC: LAB 15:01
PROVIDERS: ATTEND Internal Medicine
DX: I10 Essential (primary) hypertension (principal); E03.8 Other specified hypothyroidism
CPT/HCPCS: 36415; 80053; 84439; 84443

== ENCOUNTER 2019-07-25 11:34 | Outpatient (CLI) | payer MEDICARE, BC | END 2019-07-25 11:35 | disposition home or self-care (01) | LOC: DI 11:34 | PROVIDERS: ATTEND Internal Medicine | DX: R01.1 Cardiac murmur, unspecified (principal); I35.0 Nonrheumatic aortic (valve) stenosis | CPT/HCPCS: 93306 ==

== ENCOUNTER 2019-12-05 15:41 | Outpatient (CLI) | payer MEDICARE, BC | END 2019-12-05 15:42 | disposition critical access hospital (66) | LOC: EMS 15:41 | PROVIDERS: ATTEND Surgery | DX: M25.552 Pain in left hip (principal); W18.09XA Striking against other object with subsequent fall, initial encounter; Y92.009 Unspecified place in unspecified non-institutional (private) residence as the place of occurrence of the external cause ==

== ENCOUNTER 2019-12-05 16:00 | Emergency (ER) | payer MEDICARE, BC ==
[2019-12-05] MEDS ORDERED: MORPHINE 2 MG/ML CARPUJECT IVP STA (16:04)
--- NOTE | 2019-12-05 16:12 | ED Physician Documentation ---
PD HPI LOWER EXT INJURY - Stated complaint Stated Complaint: GLF/HIP PAIN - History obtained from History obtained from: Patient (She had a ground-level fall directly onto her left hip with exquisite pain today. No other injuries. She is otherwise very healthy. Denies hitting her head.) Review of Systems Ten Systems: 10 systems reviewed and negative Constitutional: denies: Fever, Chills Cardiac: reports: Reviewed and negative Respiratory: reports: Reviewed and negative PD PAST MEDICAL HISTORY - Past Medical History Cardiovascular: Hypertension, High cholesterol, Coronary artery disease, Murmur Respiratory: None Endocrine/Autoimmune: None GI: None WRESTLING COACH: None : None HEENT: None Psych: Anxiety, Post traumatic stress disorder Musculoskeletal: None Derm: None - Past Surgical History Past Surgical History: Yes General: Appendectomy /WRESTLING COACH: Hysterectomy - Present Medications Home Medications: Ambulatory Orders Medication Instructions Recorded Confirmed Levothyroxine [Synthroid] 75 mcg DAILY 02/20/13 05/26/17 Trazodone HCl 50 mg PO QPM 02/20/13 05/26/17 Metoprolol Succinate [Toprol Xl] 50 mg BID 12/28/13 05/26/17 Aspirin [Aspir-Low] 81 mg DAILY 09/28/16 05/26/17 Chlorthalidone 12.5 mg DAILY 09/28/16 05/26/17 Ibandronate Sodium 150 mg DAILY 09/28/16 05/26/17 Loperamide [Imodium] 1 tab DAILY 09/28/16 05/26/17 Multivitamin [Multivitamins] 1 tab DAILY 09/28/16 05/26/17 Omeprazole [PriLOSEC] 20 mg DAILY 09/28/16 05/26/17 Potassium Chloride 10 meq TID 09/28/16 05/26/17 Pravastatin [Pravachol] 20 mg DAILY 09/28/16 05/26/17 clonazePAM [Clonazepam] 2 tab DAILY 09/28/16 05/26/17 Levofloxacin [Levaquin] 500 mg PO DAILY #10 tablet 05/26/17 lisinopriL [Lisinopril] 20 mg PO DAILY 05/26/17 05/26/17 Cyclobenzaprine [Flexeril] 10 mg PO TID PRN #20 tablet 04/08/18 oxyCODONE [Roxicodone] 5 - 10 mg PO Q6H PRN #14 tablet 04/08/18 - Allergies Allergies/Adverse Reactions: Allergies Allergy/AdvReac Type Severity Reaction Status Date / Time tide detergent Allergy Hives Uncoded 12/05/19 16:16 - Social History Does the pt smoke?: No Smoking Status: Never smoker Does the pt drink ETOH?: Yes Does the pt have substance abuse?: No - Immunizations Immunizations are current?: No Immunizations: TDAP >10years/unknown - POLST Patient has POLST: No PD ED PE NORMAL - Vitals Vital signs reviewed: Yes - General General: Alert and oriented X 3, Other (She is holding the left hip flexed and has exquisite pain with any motion.) - HEENT HEENT: Atraumatic, PERRL, EOMI - Neck Neck: Supple, no meningeal sign, No bony TTP - Cardiac Cardiac: RRR, No murmur - Respiratory Respiratory: No respiratory distress, Clear bilaterally - Abdomen Abdomen: Soft, Non tender - Back Back: No CVA TTP, No spinal TTP - Derm Derm: Normal color, Warm and dry - Extremities Extremities: Other (Exquisitely tender around the left hip and severe pain with internal or external rotation. She is keeping it flexed.) - Neuro Neuro: Alert and oriented X 3, Normal speech Results - Vitals Vitals: Vital Signs - 24 hr 12/05/19 12/05/19 12/05/19 16:17 16:32 17:33 Temperature 37.1 C Heart Rate 82 83 Respiratory 18 18 18 Rate Blood Pressure 197/100 H 188/87 H O2 Saturation 98 98 Oxygen O2 Source Room air - Labs Labs: Laboratory Tests 12/05/19 12/05/19 12/05/19 16:13 16:13 16:13 WBC 8.5 RBC 4.17 L Hgb 13.0 Hct 37.8 MCV 90.6 MCH 31.2 H MCHC 34.4 RDW 10.9 L Plt Count 324 MPV 8.1 Neut # (Auto) 6.4 Lymph # (Auto) 1.3 L Loving # (Auto) 0.7 Eos # (Auto) 0.1 Baso # (Auto) 0.0 Absolute Nucleated RBC 0.00 Nucleated RBC % 0.0 PT 12.9 H INR 1.1 Sodium 123 L Potassium 2.7 L Chloride 82 L Carbon Dioxide 27 Anion Gap 14.0 H BUN 12 Creatinine 0.4 Estimated GFR (MDRD) 154 Glucose 114 H Calcium 9.0 - Rads (name of study) Xr L Hip Radiology: EMP read contemporaneously (Moderately angulated and foreshortened comminuted and displaced intertrochanteric left femoral fracture) PD MEDICAL DECISION MAKING - ED course ED course: 79-year-old presents with isolated left hip injury, looks like femoral neck fracture on x-ray. Unfortunately no orthopedic coverage available here today and will try [facility] for transfer. She was graciously accepted by Dr. Rl Tolentino to [facility] at 4:48 PM and cobras were completed. She is stable for transport for orthopedic care. She did receive maintenance fluids and some IV potassium, that looks like she is on chlorthalidone which may be causative of the hyponatremia and hypokalemia. Departure - Departure Disposition: 02 Transfer Acute Care Hosp Clinical Impression: Hyponatremia, Hypokalemia Closed left hip fracture Qualifiers: Encounter type: initial encounter Qualified Code(s): S72.002A - Fracture of unspecified part of neck of left femur, initial encounter for closed fracture Condition: Serious Discharge Date/Time: 12/05/19 18:43
[2019-12-05 16:23] LABS: BASOPHILS % (AUTO) 0.5 %; EOSINOPHILS # (AUTO) 0.1 10^3/uL (0.0-0.7); EOSINOPHILS % (AUTO) 1.6 %; LYMPHOCYTES # (AUTO) 1.3 10^3/uL (1.5-3.5); LYMPHOCYTES % (AUTO) 15.1 %; MEAN CORPUSCULAR HEMOGLOBIN 31.2 pg (27.0-31.0); MEAN CORPUSCULAR HGB CONC 34.4 g/dL (32.0-36.0); MEAN CORPUSCULAR VOLUME 90.6 fL (81.0-99.0); MEAN PLATELET VOLUME 8.1 fL (7.9-10.8); MONOCYTES # (AUTO) 0.7 10^3/uL (0.0-1.0); MONOCYTES % (AUTO) 7.7 %; NEUTROPHILS # (AUTO) 6.4 10^3/uL (1.5-6.6); NEUTROPHILS % (AUTO) 74.7 %; PLT - PLATELET COUNT 324 10^3/uL (130-450); RED BLOOD COUNT 4.17 10^6/uL (4.20-5.40); RED CELL DISTRIBUTION WIDTH 10.9 % (12.0-15.0); WHITE BLOOD COUNT 8.5 x10^3/uL (4.8-10.8)
[2019-12-05 16:31] LABS: CREATININE 0.4 mg/dL (0.4-1.0)
[2019-12-05 16:32] LABS: INR 1.1 (0.8-1.2); PT - PROTHROMBIN TIME 12.9 secs (9.9-12.6)
[2019-12-05] MEDS ORDERED: HYDROmorphone 1 MG/ML CARPUJECT IVP STA ×2 (16:33→17:13)
[2019-12-05] MEDS ORDERED: SODIUM CHLORIDE 0.9% 1,000 ML IV ONE (16:47)
[2019-12-05] MEDS ORDERED: POTASSIUM CHLOR 10 MEQ/100 ML 10 MEQ/100 ML BAG IV ONE (16:47)
--- NOTE | 2019-12-05 17:23 | XRAY Report ---
Reason: hip inj Procedure Date: 12/05/2019 Accession Number: [id number] / [id number] Procedure: XR - Hip w/Pelvis 2-3V LT CPT Code: Final Report FULL RESULT: EXAM: PELVIS AND LEFT HIP RADIOGRAPHY EXAM DATE: 12/05/2019 04:31 PM. CLINICAL HISTORY: Hip injury. COMPARISON: PELVIS 3 VIEW 11/17/2016 11:49 AM HIP W/PELVIS 2-3V RT 10/07/2016 3:12 PM. TECHNIQUE: 2 views left hip, single view pelvis. FINDINGS: Bones: Old right pubic bone fractures are again seen. There is an acute moderately angulated, mildly foreshortened, as well as displaced fracture of the intertrochanteric portion of the left femur. Joints: No dislocation is demonstrated at this time. There is moderate right hip degenerative change and at least mild left hip degenerative change. Bilateral hip joint chondrocalcinosis noted. Soft Tissues: There is at least mild localized soft tissue swelling. IMPRESSION: Acute moderately angulated, mildly foreshortened, comminuted, as well as displaced intertrochanteric left femoral fracture. RADIA
[2019-12-05 17:33] VITALS: BP 188/87
== END 2019-12-05 18:43 | disposition short-term general hospital (02) ==
LOC: EDUNIT# → ED 16:00
DX: E87.1 Hypo-osmolality and hyponatremia (principal); E87.6 Hypokalemia; S72.142A Displaced intertrochanteric fracture of left femur, initial encounter for closed fracture; W18.30XA Fall on same level, unspecified, initial encounter; I10 Essential (primary) hypertension
CPT/HCPCS: 36415; 73502; 80048; 85025; 85610; 96365; 96375; 96376; 99283; 99285; J1170

== ENCOUNTER 2019-12-05 18:45 | Outpatient (CLI) | payer MEDICARE, BC | END 2019-12-05 18:46 | disposition short-term general hospital (02) | LOC: EMS 18:45 | PROVIDERS: ATTEND Surgery | DX: M25.552 Pain in left hip (principal) | CPT/HCPCS: A0425; A0428; A0429 ==